=== PATIENT | male | born 1995 | race Caucasian/White ===

== ENCOUNTER 2018-12-11 21:32 | Emergency (ER) | payer SELFPAY ==
[~2018-12-11] VITALS: Ht 175.3 cm; Wt 106.0 kg
[~2018-12-11 21:32] MED LIST: ALAVERT10 MG OR; AUGMENTIN500 MG OR; AUGMENTIN875TAB PO; CEPHALEXIN500 MG PO; CORTISPORIN OTI10 ML AS; FLOXIN OTIC0.3 % OT; IBUPROFEN600 MG OR; LORTAB 1010 MG PO; MOTRIN400 MG OR; NAPROSYN500 MG OR; NO HOME MEDS; POOR HISTORIAN; PREDNISONE5 MG OR; TYLENOL OR
[2018-12-11 22:09] LABS: BARBITURATES NEGATIVE (NEGATIVE); COCAINE NEGATIVE (NEGATIVE); METHADONE NEGATIVE (NEGATIVE); TETRAHYDROCANNABIONOL NEGATIVE (NEGATIVE); TRICYLIC ANTIDEPRESSANTS NEGATIVE (NEGATIVE)
[2018-12-11 22:10] LABS: OXCYCODONE NEGATIVE (NEGATIVE)
[2018-12-11 23:52] VITALS: BP 117/65
== END 2018-12-12 | disposition home or self-care (01) | DRG 310 ==
LOC: ED 21:32
PROVIDERS: Emergency Medicine
DX: R00.2 Palpitations (principal)